=== PATIENT | male | born 1940 | race Caucasian/White ===

== ENCOUNTER 2022-01-15 00:50 | Observation (INO) | payer OTHER, SELFPAY ==
[2022-01-15] VITALS (13 sets, daily range): BP systolic 119–175; BP diastolic 55–82; PULSE 58–73; RESP 12–20; TEMP 36.3–37.7; O2SAT 95–100
--- NOTE | 2022-01-15 | ECHO_ITS ---
Patient Info Name: Dickson Pretty Age: 81 years : 1940 Gender: Male Ht: 73 in Wt: 206 lbs BSA: 2.21 m2 HR: 65 bpm BP: 175 / 82 mmHg Heart Rhythm: Sinus Rhythm Exam Date: 01/15/2022 3:16 PM Exam Location: [facility] Patient Status: Inpatient Admit Date: 01/15/2022 Staff Ordering Physician: Chastity Richard PA-C Crop Research Scientist: Jalen Charles RDCS, RT Attending Provider: Chastity Richard PA-C Referring Physician: Jose Manuel CASH; Exam Type: CA echo doppler color flow Study Info Indications I50.9 - Heart failure, unspecified Complete two-dimensional, color flow and Doppler transthoracic echocardiogram is performed. Strain analysis performed. Summary 1. Complete two-dimensional, color flow and Doppler transthoracic echocardiogram is performed. 2. Normal left venticular systolic function with no regional wall motion abnormalities. 3. No significant valvular disease. Left Ventricle Normal left venticular systolic function with no regional wall motion abnormalities. Left ventricular chamber dimension is normal. Left ventricular systolic function is normal, estimated at 60-65%. There is mildly increased left ventricular wall thickness. The left ventricular diastolic function is normal. Right Ventricle Right ventricular chamber dimension is normal. Right ventricular systolic function is normal. Left Atria Left atrial chamber dimension is mildly enlarged. Right Atria Right atrial chamber dimension is normal. Aortic Valve The aortic valve is not well visualized. There is no aortic valve stenosis. There is trace aortic valve regurgitation. Pulmonic Valve The pulmonic valve is not well visualized. Mitral Valve The mitral valve has normal leaflets. There is no mitral valve stenosis. There is mild mitral valve regurgitation. Tricuspid Valve The tricuspid valve leaflets are not well visualized. There is no significant tricuspid valve stenosis. There is no tricuspid valve regurgitation. Pericardium/Pleural There is no pericardial effusion. Aorta The aortic root size at the sinus of Valsalva is normal. The prox ascending aorta size is normal. Left Ventricular Outflow Tract Name Value Normal LVOT 2D LVOT Diameter 2.0 cm LVOT Doppler LVOT Peak Gradient 4 mmHg LVOT Mean Gradient 2 mmHg LVOT VTI 20 cm LVOT VTI/AV VTI Ratio 0.8 LVOT Stroke Volume 65 ml LVOT CO 4.2 l/min LVOT CI 1.9 l/min/m2 Mitral Valve Name Value Normal MV Doppler MV Decel Sullivan 280 cm/s2 MV PHT 82 ms MV Area (PHT) 2.7 cm2 4.0-5.0
--- NOTE | ~2022-01-15 | XR_ITS ---
EXAMINATION: XR chest 1V portable DATE: 01/15/2022 01:21 INDICATION: Weakness TECHNIQUE: frontal view of the chest was obtained. COMPARISON: None FINDINGS: Pulmonary vascular congestion. Mild opacities at the bilateral lower lung zones. No pleural effusion or pneumothorax. The cardiomediastinal silhouette is normal. Mild thoracic dextrocurvature with mild spondylosis. IMPRESSION: 1. Pulmonary vascular congestion with mild opacities in bilateral lower lung zones most likely atelec tasis with differential including mild pulmonary edema or pneumonia. Reviewed, dictated and finalized at location A. IMPRESSION: 1. Pulmonary vascular congestion with mild opacities in bilateral lower lung zo mirza most likely atelectasis with differential including mild pulmonary edema or pneumonia.
--- NOTE | 2022-01-15 01:12 | ECG_ITS ---
Measurements Intervals [place] Rate: 62 P: 6 MI: 149 QRS: -41 QRSD: 118 T: 8 QT: 415 QTc: 422 Interpretive Statements SINUS RHYTHM LEFT AXIS DEVIATION INCOMPLETE RIGHT BUNDLE BRANCH BLOCK CANNOT RULE OUT SEPTAL INFARCT, AGE INDETERMINATE BASELINE ARTIFACT- II, V1 ABNORMAL ECG NO PREVIOUS ECG AVAILABLE FOR COMPARISON Electronically Signed On 01-15-2022 6:37:49 CDT by Nakul Sanders D.O.
[2022-01-15 01:57] LABS: Basophils Absolute Auto 0.1 K/mm3 (0.0-0.1); Basophils Percent Auto 0.4 % (0.2-1.2); Eosinophils Absolute Auto 0.1 K/mm3 (0-0.3); Eosinophils Percent Auto 0.4 % (0-4.4); Hematocrit 36.4 % (42.0-52.0); Hemoglobin 11.7 g/dL (14.0-18.0); Immature Granulocyte Absolute 0.14 K/mm3 (0.00-0.031); Immature Granulocyte Percent A 0.8 % (0-0.5); Lymphocytes Absolute Auto 0.64 K/mm3 (0.9-3.2); Lymphocytes Percent Auto 3.8 % (18.3-44.2); Mean Corpuscular HGB Conc 32.1 g/dl (32-36); Mean Corpuscular Hemoglobin 31.5 pg (26-34); Mean Corpuscular Volume 98.1 fl (80-100); Mean Platelet Volume 9.3 fl (7.4-10.4); Monocytes Absolute Auto 1.3 K/mm3 (0.1-0.6); Monocytes Percent Auto 7.5 % (2.6-8.5); Neutrophils Absolute Auto 14.5 K/mm3 (1.3-6.7); Neutrophils Percent Auto 87.1 % (45.5-73.1); Platelet Count Result 292 k/mm3 (150-375); Red Blood Count 3.71 M/mm3 (4.6-6.20); Red Cell Distribution Width 13.1 % (11.5-14.5); White Blood Count 16.7 K/mm3 (4.5-10.0)
[2022-01-15 01:59] LABS: Appearance Urine Cloudy (Clear); Bilirubin Urine Negative (Negative); Blood Urine 3+ (Negative); Color Urine Yellow (Yellow); Glucose Urine UA Negative (Negative); Ketones Urine Negative (Negative); Leukocyte Esterase Ur 1+ LEU/UL (Negative); Nitrate Urine Positive (Negative); Protein Urine 2+ mg/dL (Negative); Urobilinogen Urine 0.2 mg/dL (<2.0); pH Urine 7.5 (5.0-9.0)
[2022-01-15 02:07] LABS: Bacteria Urine Trace /hpf; RBC Urine 51-75 /hpf (0-2); WBC Urine >75 /hpf
[2022-01-15 02:09] LABS: Add Urine Microscopic? YES
[2022-01-15 02:12] LABS: Alanine Aminotransferase 8 U/L (6-50); Albumin Level 4.3 g/dL (3.5-5.1); Alkaline Phosphatase 96 U/L (38-126); Anion Gap 11 mmol/L (8-16); Aspartate Amino Transferase 26 U/L (17-59); Bilirubin,Total 1.1 mg/dL (0.2-1.3); Blood Urea Nitrogen 23 mg/dL (9-20); Calcium 9.7 mg/dL (8.4-10.2); Carbon Dioxide 30 mmol/L (22-30); Chloride 98 mmol/L (98-107); Estimated Glomerular Filt Rate > 60; Glucose 110 mg/dL (65-110); Potassium 4.2 mmol/L (3.4-5.0); Sodium 139 mmol/L (137-145)
[2022-01-15 02:13] LABS: Lactic Acid Reflex 1.1 mmol/L (0.7-2.0)
[2022-01-15] MEDS: SODIUM CHLORIDE 0.9% IV 1,000 ML 999 ML IV CONT (02:23)
[2022-01-15 02:48] LABS: Troponin I 0.048 ng/mL (0.000-0.034)
--- NOTE | 2022-01-15 03:01 | ED.GENADULT ---
HPI - General Adult General Chief complaint: Altered Mental Status Stated complaint: AMS Time Seen by Provider: 01/15/22 00:57 History of Present Illness HPI narrative: Patient 81-year-old gentleman who presents the emergency department with chief complaint of altered mental status per the [facility] and the family the patient is normally alert and able to answer questions and they have noticed that he has been progressively weaker today. They also noticed that the patient had a fever today. Patient has history of Parkinson's and is normally ANO x2. Related Data Allergies Allergy/AdvReac Type Severity Reaction Status Date / Time No Known Allergies Allergy Unverified 11/13/18 12:27 Review of Systems Review of Systems: A 10 system review of systems was completed on the patient and is negative except for what is stated in the HPI. Nursing and ancillary documentation was reviewed. Exam Narrative: GENERAL: Well-appearing, well-nourished, and in no acute distress. HEAD: Normocephalic, atraumatic. EYES: PERRLA and EOMI. ENT: Nares clear, no rhinorrhea or epistaxis. Mucous membranes moist. NECK: Supple. CHEST: Clear to auscultation. No respiratory distress. HEART: Regular rate and rhythm. No murmur heard. Normal peripheral pulses. ABDOMEN: Soft, nontender, nondistended, normal active bowel sounds. EXTREMITIES: Normal range of motion. No edema. SKIN: Warm, dry, no rash. NEURO: No focal deficits. Alert and oriented x3. PSYCH: Normal mood and affect. Course Course Emergency Course: Laboratory studies showed an elevated white blood cell count and a urinalysis that was positive for greater than 75 white blood cells. Patient did have a slightly elevated troponin, but has had no chest pain and EKG showed no evidence of acute ST elevation Vital Signs Vital signs: Vital Signs Temperature 36.3 C L 01/15/22 00:50 Pulse Rate 58 L 01/15/22 00:50 Respiratory Rate 20 01/15/22 00:50 Blood Pressure 134/64 01/15/22 00:50 Pulse Oximetry 98 01/15/22 00:50 Oxygen Delivery Room Air 01/15/22 00:50 Temperature 36.3 C L 01/15/22 00:50 Pulse Rate 58 L 01/15/22 00:50 Respiratory Rate 20 01/15/22 00:50 Blood Pressure 134/64 01/15/22 00:50 Pulse Oximetry 98 01/15/22 00:50 Oxygen Delivery Room Air 01/15/22 00:50 Medical Decision Making Vital Signs Vital Signs: Vital Signs Temperature 36.3 C L 01/15/22 00:50 Pulse Rate 58 L 01/15/22 00:50 Respiratory Rate 20 01/15/22 00:50 Blood Pressure 134/64 01/15/22 00:50 Pulse Oximetry 98 01/15/22 00:50 Oxygen Delivery Room Air 01/15/22 00:50 Temperature 36.3 C L 01/15/22 00:50 Pulse Rate 58 L 01/15/22 00:50 Respiratory Rate 20 01/15/22 00:50 Blood Pressure 134/64 01/15/22 00:50 Pulse Oximetry 98 01/15/22 00:50 Oxygen Delivery Room Air 01/15/22 00:50 Lab Data Result diagrams: 01/15/22 01:44 01/15/22 01:44 Labs: Lab Results 01/15/22 01/15/22 01/15/22 Range/Units 01:44 01:44 01:44 WBC 16.7 H (4.5-10.0) K/mm3 RBC 3.71 L (4.6-6.20) M/mm3 Hgb 11.7 L (14.0-18.0) g/dL Hct 36.4 L (42.0-52.0) % MCV 98.1 (80-100) fl MCH 31.5 (26-34) pg MCHC 32.1 (32-36) g/dl RDW 13.1 (11.5-14.5) % Plt Count 292 (150-375) k/mm3 MPV 9.3 (7.4-10.4) fl Immature Gran % (Auto) 0.8 H (0-0.5) % Neut % (Auto) 87.1 H (45.5-73.1) % Lymph % (Auto) 3.8 L (18.3-44.2) % [place] % (Auto) 7.5 (2.6-8.5) % Eos % (Auto) 0.4 (0-4.4) % Baso % (Auto) 0.4 (0.2-1.2) % Lymph # (Auto) 0.64 L (0.9-3.2) K/mm3 [place] # (Auto) 1.3 H (0.1-0.6) K/mm3 Eos # (Auto) 0.1 (0-0.3) K/mm3 Baso # (Auto) 0.1 (0.0-0.1) K/mm3 Abs Immat Gran (auto) 0.14 H (0.00-0.031) K/mm3 Absolute Neuts (auto) 14.5 H (1.3-6.7) K/mm3 Absolute Nucleated RBC 0.0 (0.0-0.012) K/mm3 Nucleated RBC % 0.0 (0.0-0.2) % Sodium 139 (137-145) mmo
--- NOTE | 2022-01-15 03:04 | PC.NURSE ---
report given to Selam.
[2022-01-15 03:14] LABS: Influenza A QL RT-PCR Negative (Negative); Influenza B QL RT-PCR Negative (Negative); SARS-CoV-2 RNA PCR Negative
[2022-01-15 03:27] LABS: Procalcitonin 0.5 ng/mL
--- NOTE | 2022-01-15 03:29 | PM.IMHP ---
H&P: HPI History of Present Illness Date/Time: 01/15/22 03:29 Chief Complaint: 81 years old male with past medical history of Parkinson alert oriented x2 at baseline patient presented from [facility] with progressive weakness and confusion patient had episode of fever at the ER patient was found to leukocytosis elevated troponin and abnormal UA most likely related to UTI patient was started on IV antibiotic blood cultures pending Narrative: 12 system review was negative except above Meds Home Medications and Allergies Home Medications Medication Instructions Recorded Confirmed Type clonazepam 0.5 mg tablet 0.5 mg PO QHS #30 tabs 04/03/21 Rx Allergies Allergy/AdvReac Type Severity Reaction Status Date / Time No Known Allergies Allergy Unverified 11/13/18 12:27 Vital Signs Vital Signs - 24 hr 01/15/22 00:50 Temperature 97.3 F L Pulse Rate 58 L Respiratory Rate 20 Blood Pressure 134/64 Pulse Oximetry 98 Oxygen Delivery Room Air Exam Narrative: GENERAL: Looks dehydrated. HEAD: Normocephalic, atraumatic. NECK: Supple. No adenopathy, no masses. RESPIRATORY: Airway patent, respirations nonlabored. Clear to auscultation bilaterally, no rales, rhonchi, wheezing. CARDIOVASCULAR: Regular rate and rhythm without murmurs, rubs, or gallops. Peripheral pulses 2+ and equal bilaterally. ABDOMINAL: Soft, nontender, nondistended, no hepatosplenomegaly. Normoactive BS. MUSCULOSKELETAL: Moves all extremities. Strength/ROM intact without gross deformities or TTP. No edema. No calf tenderness. No chest wall tenderness palpation. SKIN: Warm, dry, normal color. No rashes. NEURO: A&O X2 moves all extremities PSYCHIATRIC: Appropriate mood and affect. Normal interaction. H&P: Results Labs Labs: Short CBC 01/15/22 Range/Units 01:44 WBC 16.7 H (4.5-10.0) K/mm3 Hgb 11.7 L (14.0-18.0) g/dL Hct 36.4 L (42.0-52.0) % Plt Count 292 (150-375) k/mm3 BMP 01/15/22 01:44 Sodium 139 Potassium 4.2 Chloride 98 Carbon Dioxide 30 BUN 23 H Creatinine 1.10 Glucose 110 Calcium 9.7 Cardiac Enzymes 01/15/22 Range/Units 01:44 Troponin I 0.048 H* (0.000-0.034) ng/mL Liver Function 01/15/22 Range/Units 01:44 Total Bilirubin 1.1 (0.2-1.3) mg/dL AST 26 (17-59) U/L ALT 8 (6-50) U/L Alkaline Phosphatase 96 (38-126) U/L Albumin 4.3 (3.5-5.1) g/dL Urine 01/15/22 Range/Units 01:44 Urine Color Yellow (Yellow) Urine Appearance Cloudy H (Clear) Urine pH 7.5 (5.0-9.0) Ur Specific [place] 1.020 (1.001-1.035) Urine Protein 2+ H (Negative) mg/dL Urine Glucose (UA) Negative (Negative) mg/dL Assessment and Plan Assessment and plan (1) UTI (urinary tract infection): Code(s): N39.0 - Urinary tract infection, site not specified Status: Acute Assessment and Plan: IV Rocephin Follow urine and blood culture Encourage hydration Will get renal ultrasound (2) Acute metabolic encephalopathy: Code(s): G93.41 - Metabolic encephalopathy Status: Acute Assessment and Plan: Check ammonia level Most likely related to UTI and dehydration IV fluid IV antibiotics (3) Elevated troponin: Code(s): R77.8 - Other specified abnormalities of plasma proteins Status: Acute Assessment and Plan: Most likely demand ischemia type 2 check repeat troponin if elevated consider echo (4) Dehydration: Code(s): E86.0 - Dehydration Status: Acute Assessment and Plan: IV fluid (5) History of Parkinson's disease: Code(s): Z86.69 - Personal history of other diseases of the nervous system and sense organs Status: Acute Assessment and Plan: Pending home medication reconciliation
[2022-01-15 05:12] LABS: Alanine Aminotransferase 9 U/L (6-50); Albumin Level 4.1 g/dL (3.5-5.1); Alkaline Phosphatase 92 U/L (38-126); Anion Gap 12 mmol/L (8-16); Aspartate Amino Transferase 23 U/L (17-59); Blood Urea Nitrogen 24 mg/dL (9-20); Calcium 9.6 mg/dL (8.4-10.2); Carbon Dioxide 28 mmol/L (22-30); Chloride 98 mmol/L (98-107); Estimated Glomerular Filt Rate > 60; Glucose 99 mg/dL (65-110); Potassium 4.4 mmol/L (3.4-5.0); Sodium 138 mmol/L (137-145)
[2022-01-15 05:23] LABS: Ammonia < 9 umol/L (9-30)
[2022-01-15 05:29] LABS: Basophils Percent Auto 0.2 % (0.2-1.2); Eosinophils Percent Auto 0.1 % (0-4.4); Hematocrit 34.5 % (42.0-52.0); Immature Granulocyte Absolute 0.09 K/mm3 (0.00-0.031); Immature Granulocyte Percent A 0.6 % (0-0.5); Lymphocytes Percent Auto 3.1 % (18.3-44.2); Mean Corpuscular HGB Conc 31.9 g/dl (32-36); Mean Corpuscular Hemoglobin 30.8 pg (26-34); Mean Corpuscular Volume 96.6 fl (80-100); Mean Platelet Volume 9.4 fl (7.4-10.4); Monocytes Absolute Auto 1.1 K/mm3 (0.1-0.6); Monocytes Percent Auto 6.9 % (2.6-8.5); Neutrophils Absolute Auto 14.3 K/mm3 (1.3-6.7); Neutrophils Percent Auto 89.1 % (45.5-73.1); Platelet Count Result 264 k/mm3 (150-375); Red Blood Count 3.57 M/mm3 (4.6-6.20)
[2022-01-15 05:40] LABS: Troponin I 0.068 ng/mL (0.000-0.034)
[2022-01-15 08:13] LABS: Troponin I 0.077 ng/mL (0.000-0.034)
--- NOTE | 2022-01-15 08:18 | PC.NURSE ---
Troponin level reported to provider.
[2022-01-15] MEDS: SODIUM CHLORIDE 0.9% IV 1,000 ML 100 ML IV CONT ×2 (09:04→20:45)
[2022-01-15] MEDS: ASPIRIN 81 MG CHEWABLE TABLET PO (09:06)
[2022-01-15] MEDS: ENOXAPARIN 40 MG/0.4 ML SYRINGE SUB-Q (09:06)
[2022-01-15] MEDS: FINASTERIDE 5 MG TABLET PO (10:05)
[2022-01-15] MEDS: CARBIDOPA/LEVODOPA 25/100 MG TABLET 2 TABLET PO ×4 (10:05→20:43)
[2022-01-15] MEDS: FUROSEMIDE 20 MG TABLET PO (10:05)
[2022-01-15] MEDS: FERROUS SULFATE 324 MG TABLET PO (10:05)
[2022-01-15] MEDS: CITALOPRAM HYDROBROMIDE 20 MG TABLET PO (10:05)
[2022-01-15] MEDS: GABAPENTIN 300 MG CAPSULE PO (10:06)
[2022-01-15] MEDS: DOCUSATE SODIUM 100 MG CAPSULE PO ×2 (10:06→17:35)
[2022-01-15 11:16] LABS: Troponin I 0.088 ng/mL (0.000-0.034)
--- NOTE | 2022-01-15 11:20 | PC.NURSE ---
Call placed to notify provider of troponin level. awaiting return call.
--- NOTE | 2022-01-15 15:00 | PM.IMPN ---
Progress Note: A&P Assessment and Plan (1) UTI (urinary tract infection): Code(s): N39.0 - Urinary tract infection, site not specified Status: Acute Assessment and Plan: presented for evaluation of fever with complaints of dysuria and incontinence urinalysis grossly abnormal on presentation continue IV Rocephin urine culture pending, await results and tailor antibiotics accordingly continue gentle IV fluids patient with leukocytosis, continue to monitor CBC (2) Acute metabolic encephalopathy: Code(s): G93.41 - Metabolic encephalopathy Status: Acute Assessment and Plan: patient oriented to self only family reports patient is normally able to answer most questions appropriately likely secondary to UTI as described above. treatment plan as above ammonia within normal limits (3) Elevated troponin: Code(s): R77.8 - Other specified abnormalities of plasma proteins Status: Acute Assessment and Plan: troponin elevated on presentation with increased to 0.088 most likely related to demand ischemia EKG reviewed with no evidence of acute ischemic changes patient denies any history of heart disease patient asymptomatic reviewed troponin results with Cardiology, recommended no need for further trending of troponin levels will obtain echocardiogram to evaluate for wall motion abnormalities consider consultation to Cardiology based on results (4) Dehydration: Code(s): E86.0 - Dehydration Status: Acute Assessment and Plan: secondary to acute infection and decreased p.o. intake continue IV fluids encourage adequate p.o. intake (5) History of Parkinson's disease: Code(s): Z86.69 - Personal history of other diseases of the nervous system and sense organs Status: Acute Assessment and Plan: chronic, unchanged continue carbidopa-levodopa Subjective Date/time seen: 01/15/22 15:00 Interval history: date of service: 01/15/2022 Dickson Ellis is a 81-year-old male with a history of Parkinson's disease, anemia, hyperlipidemia who is seen in follow-up for UTI. He states he feels weak today. He denies chest pain. He does endorse dysuria and urinary incontinence. Denies fever, chills, nausea, vomiting, dizziness, lightheadedness. States his appetite is good. Denies abdominal pain. No diarrhea. No additional concerns. Review of Systems Review of Systems: All systems reviewed & are unremarkable except as noted in HPI and below Exam Narrative: General: Well-nourished, chronically ill-appearing 81-year-old male, sitting up in bed, comfortable, NARD Neuro: awake, alert and oriented x to self only, speech clear, no focal neuro deficits noted, resting tremor of right upper extremity HEENMT: normocephalic, atraumatic, EOMI, sclerae anicteric, moist oral mucosa Respiratory: clear to auscultation bilaterally, nonlabored breathing Cardio: regular rate, regular rhythm with S1-S2 Abdomen: nondistended, normoactive bowel sounds, soft, nontender to palpation : no CVA tenderness Extremities: no edema, erythema, or tenderness to palpation, DP pulses 2+ bilaterally Skin: no rashes or lesions, warm and dry Psych: appropriate mood and affect, judgment and insight fair Objective Data Vital Signs Vital Signs: Vital Signs - 24 hr 01/15/22 00:50 01/15/22 03:30 01/15/22 03:50 Temperature 97.3 F L Pulse Rate 58 L Respiratory Rate 20 Blood Pressure 134/64 Pulse Oximetry 98 100 95 Oxygen Delivery Room Air 01/15/22 04:00 01/15/22 04:01 01/15/22 04:35 Temperature 97.8 F Pulse Rate 67 66 68 Respiratory Rate 12 20 16 Blood Pressure 152/72 H 175/82 H Pulse Oximetry 100 99 Oxygen Delivery 01/15/22 04:00 01/15/22 08:00 01/15/22 12:00 Temperature Pulse Rate 66 71 69 Respiratory Rate Blood Pressure Pulse Oximetry Oxygen Delivery
[2022-01-15] MEDS: GABAPENTIN 300 MG CAPSULE 600 MG PO (20:43)
[2022-01-15] MEDS: ATORVASTATIN 20 MG TABLET PO (20:43)
[2022-01-15] MEDS: DONEPEZIL HCL 10 MG TABLET PO (20:43)
[2022-01-16] VITALS (10 sets, daily range): BP systolic 153–160; BP diastolic 72–81; PULSE 53–68; RESP 16–20; TEMP 36.1–37.1; O2SAT 94–98
[2022-01-16] MEDS: SODIUM CHLORIDE 0.9% IV 1,000 ML 100 ML IV CONT (07:39)
[2022-01-16 07:48] LABS: Basophils Percent Auto 0.2 % (0.2-1.2); Eosinophils Percent Auto 0.3 % (0-4.4); Hematocrit 31.1 % (42.0-52.0); Immature Granulocyte Absolute 0.06 K/mm3 (0.00-0.031); Immature Granulocyte Percent A 0.5 % (0-0.5); Lymphocytes Absolute Auto 0.81 K/mm3 (0.9-3.2); Lymphocytes Percent Auto 6.9 % (18.3-44.2); Mean Corpuscular HGB Conc 32.2 g/dl (32-36); Mean Corpuscular Volume 96.3 fl (80-100); Mean Platelet Volume 9.8 fl (7.4-10.4); Monocytes Absolute Auto 1.4 K/mm3 (0.1-0.6); Monocytes Percent Auto 11.9 % (2.6-8.5); Neutrophils Absolute Auto 9.4 K/mm3 (1.3-6.7); Neutrophils Percent Auto 80.2 % (45.5-73.1); Platelet Count Result 275 k/mm3 (150-375); Red Blood Count 3.23 M/mm3 (4.6-6.20); Red Cell Distribution Width 13.1 % (11.5-14.5); White Blood Count 11.7 K/mm3 (4.5-10.0)
[2022-01-16] MEDS: ENOXAPARIN 40 MG/0.4 ML SYRINGE SUB-Q (08:15)
[2022-01-16] MEDS: CITALOPRAM HYDROBROMIDE 20 MG TABLET PO (08:16)
[2022-01-16] MEDS: GABAPENTIN 300 MG CAPSULE PO (08:16)
[2022-01-16] MEDS: FUROSEMIDE 20 MG TABLET PO (08:16)
[2022-01-16] MEDS: DOCUSATE SODIUM 100 MG CAPSULE PO ×2 (08:16→16:32)
[2022-01-16] MEDS: FERROUS SULFATE 324 MG TABLET PO (08:16)
[2022-01-16] MEDS: ASPIRIN 81 MG CHEWABLE TABLET PO (08:16)
[2022-01-16] MEDS: ACETAMINOPHEN 325 MG TABLET 650 MG PO ×4 (08:16→21:01)
[2022-01-16] MEDS: CARBIDOPA/LEVODOPA 25/100 MG TABLET 2 TABLET PO ×4 (08:16→21:02)
[2022-01-16] MEDS: FINASTERIDE 5 MG TABLET PO (08:16)
[2022-01-16 08:18] LABS: Alanine Aminotransferase 9 U/L (6-50); Albumin Level 3.7 g/dL (3.5-5.1); Alkaline Phosphatase 76 U/L (38-126); Anion Gap 11 mmol/L (8-16); Aspartate Amino Transferase 23 U/L (17-59); Bilirubin,Total 0.6 mg/dL (0.2-1.3); Blood Urea Nitrogen 14 mg/dL (9-20); Calcium 8.4 mg/dL (8.4-10.2); Carbon Dioxide 27 mmol/L (22-30); Chloride 97 mmol/L (98-107); Estimated Glomerular Filt Rate > 60; Glucose 101 mg/dL (65-110); Potassium 3.3 mmol/L (3.4-5.0); Sodium 135 mmol/L (137-145)
[2022-01-16] MEDS: POTASSIUM CHLORIDE 20 MEQ TABLET PO (10:38)
--- NOTE | 2022-01-16 13:43 | PM.IMPN ---
Progress Note: A&P Assessment and Plan (1) UTI (urinary tract infection): Code(s): N39.0 - Urinary tract infection, site not specified Status: Acute Assessment and Plan: presented for evaluation of fever with complaints of dysuria and incontinence urinalysis grossly abnormal on presentation continue IV Rocephin urine culture with growth of Proteus mirabilis, sensitivity report pending discontinue IV fluids as patient has been adequately rehydrated and is tolerating p.o. intake leukocytosis improving, remains afebrile (2) Acute metabolic encephalopathy: Code(s): G93.41 - Metabolic encephalopathy Status: Acute Assessment and Plan: patient oriented to self only family reports patient is normally able to answer most questions appropriately likely secondary to UTI as described above. treatment plan as above pt does have underlying dementia ammonia within normal limits (3) Elevated troponin: Code(s): R77.8 - Other specified abnormalities of plasma proteins Status: Acute Assessment and Plan: troponin elevated on presentation with increased to 0.088 most likely related to demand ischemia EKG reviewed with no evidence of acute ischemic changes patient denies any history of heart disease. he is asymptomatic echocardiogram completed with no wall motion abnormalities no need for further monitoring. (4) Dehydration: Code(s): E86.0 - Dehydration Status: Acute Assessment and Plan: Resolved. secondary to acute infection and decreased p.o. intake IV fluids discontinued today encourage adequate p.o. intake (5) History of Parkinson's disease: Code(s): Z86.69 - Personal history of other diseases of the nervous system and sense organs Status: Acute Assessment and Plan: chronic, unchanged continue carbidopa-levodopa Subjective Date/time seen: 01/16/22 13:43 Interval history: date of service: 01/15/2022 Dickson Ellis is a 81-year-old male with a history of Parkinson's disease, anemia, hyperlipidemia who is seen in follow-up for UTI. he is a fair historian. He complains of back pain today. Denies abdominal pain. Denies dysuria. No chest pain. No shortness of breath. No fevers or chills. Not able to obtain any additional history. Review of Systems Review of Systems: All systems reviewed & are unremarkable except as noted in HPI and below Exam Narrative: General: Well-nourished, chronically ill-appearing 81-year-old male, sitting up in bed, comfortable, NARD Neuro: awake, alert and oriented x to self only, speech clear, no focal neuro deficits noted, resting tremor of right upper extremity HEENMT: normocephalic, atraumatic, EOMI, sclerae anicteric, moist oral mucosa Respiratory: clear to auscultation bilaterally, nonlabored breathing Cardio: regular rate, regular rhythm with S1-S2 Abdomen: nondistended, normoactive bowel sounds, soft, nontender to palpation Extremities: no edema, erythema, or tenderness to palpation, DP pulses 2+ bilaterally Skin: no rashes or lesions, warm and dry Psych: appropriate mood and affect, judgment and insight fair Objective Data Vital Signs Vital Signs: Vital Signs - 24 hr 01/15/22 14:00 01/15/22 16:00 01/15/22 16:02 Temperature 99.9 F H Pulse Rate 65 65 72 Respiratory Rate 18 Blood Pressure 119/55 L Pulse Oximetry 100 Oxygen Delivery 01/15/22 20:00 01/15/22 22:00 01/16/22 04:00 Temperature 98.6 F Pulse Rate 59 L 73 64 Respiratory Rate 16 Blood Pressure 130/73 Pulse Oximetry 97 Oxygen Delivery 01/16/22 00:00 01/16/22 06:00 01/16/22 08:44 Temperature 98.8 F Pulse Rate 57 L 63 67 Respiratory Rate 20 Blood Pressure 160/81 H Pulse Oximetry 97 Oxygen Delivery 01/16/22 09:32 01/16/22 08:00 Temperature Pulse Rate Respiratory Rate Blood Pressure Pulse Oximetry 94
[2022-01-16] MEDS: ATORVASTATIN 20 MG TABLET PO (21:02)
[2022-01-16] MEDS: GABAPENTIN 300 MG CAPSULE 600 MG PO (21:02)
[2022-01-16] MEDS: DONEPEZIL HCL 10 MG TABLET PO (21:02)
[2022-01-17] VITALS: PULSE 59
[2022-01-17 04:00] VITALS: PULSE 67
[2022-01-17 06:00] VITALS: BP 159/83; PULSE 58; RESP 17; TEMP 36.7; O2SAT 100
[2022-01-17 06:10] LABS: Basophils Percent Auto 0.2 % (0.2-1.2); Eosinophils Absolute Auto 0.1 K/mm3 (0-0.3); Eosinophils Percent Auto 0.9 % (0-4.4); Hematocrit 31.2 % (42.0-52.0); Hemoglobin 10.2 g/dL (14.0-18.0); Immature Granulocyte Absolute 0.04 K/mm3 (0.00-0.031); Immature Granulocyte Percent A 0.5 % (0-0.5); Lymphocytes Absolute Auto 0.55 K/mm3 (0.9-3.2); Lymphocytes Percent Auto 6.4 % (18.3-44.2); Mean Corpuscular HGB Conc 32.7 g/dl (32-36); Mean Corpuscular Hemoglobin 31.1 pg (26-34); Mean Corpuscular Volume 95.1 fl (80-100); Monocytes Absolute Auto 0.9 K/mm3 (0.1-0.6); Monocytes Percent Auto 10.6 % (2.6-8.5); Neutrophils Percent Auto 81.4 % (45.5-73.1); Platelet Count Result 265 k/mm3 (150-375); Red Blood Count 3.28 M/mm3 (4.6-6.20); Red Cell Distribution Width 12.8 % (11.5-14.5); White Blood Count 8.6 K/mm3 (4.5-10.0)
[2022-01-17 06:22] LABS: Alanine Aminotransferase 8 U/L (6-50); Albumin Level 3.6 g/dL (3.5-5.1); Alkaline Phosphatase 82 U/L (38-126); Anion Gap 9 mmol/L (8-16); Aspartate Amino Transferase 29 U/L (17-59); Bilirubin,Total 0.5 mg/dL (0.2-1.3); Blood Urea Nitrogen 14 mg/dL (9-20); Calcium 8.9 mg/dL (8.4-10.2); Carbon Dioxide 30 mmol/L (22-30); Chloride 98 mmol/L (98-107); Estimated Glomerular Filt Rate > 60; Glucose 97 mg/dL (65-110); Potassium 3.3 mmol/L (3.4-5.0); Sodium 137 mmol/L (137-145)
[2022-01-17 08:00] VITALS: PULSE 57
[2022-01-17] MEDS: FINASTERIDE 5 MG TABLET PO (08:48)
[2022-01-17] MEDS: ASPIRIN 81 MG CHEWABLE TABLET PO (08:48)
[2022-01-17] MEDS: DOCUSATE SODIUM 100 MG CAPSULE PO ×2 (08:48→16:55)
[2022-01-17] MEDS: ENOXAPARIN 40 MG/0.4 ML SYRINGE SUB-Q (08:48)
[2022-01-17] MEDS: CITALOPRAM HYDROBROMIDE 20 MG TABLET PO (08:48)
[2022-01-17] MEDS: CARBIDOPA/LEVODOPA 25/100 MG TABLET 2 TABLET PO ×3 (08:48→16:54)
[2022-01-17] MEDS: FUROSEMIDE 20 MG TABLET PO (08:48)
[2022-01-17] MEDS: FERROUS SULFATE 324 MG TABLET PO (08:49)
[2022-01-17] MEDS: ACETAMINOPHEN 325 MG TABLET 650 MG PO ×3 (08:49→16:55)
[2022-01-17] MEDS: GABAPENTIN 300 MG CAPSULE PO (08:49)
[2022-01-17 12:00] VITALS: PULSE 62
[2022-01-17 14:00] VITALS: BP 133/64; PULSE 55; RESP 17; TEMP 36.1; O2SAT 100
--- NOTE | 2022-01-17 14:52 | PM.DS ---
DS: Admitting Diagnosis Discharge Date 01/17/2022 Admitting Diagnosis UTI, encephalopathy DS: Discharge Diagnosis Discharge Diagnosis (1) UTI (urinary tract infection): Code(s): N39.0 - Urinary tract infection, site not specified Status: Acute Assessment and Plan: presented for evaluation of fever with complaints of dysuria and incontinence Urinalysis grossly abnormal on presentation Urine culture with growth of Proteus mirabilis Treated with IV Rocephin during admission. Will continue p.o. cefdinir on discharge to complete 7 days of antibiotic therapy (2) Acute metabolic encephalopathy: Code(s): G93.41 - Metabolic encephalopathy Status: Acute Assessment and Plan: [place] to be secondary to UTI Patient has underlying dementia and is typically A&O times 1-2, however reported decreased mentation prior to presentation Mental status improved following treatment with IV antibiotics and per family, patient's mental status returned to his baseline. Patient was A&O x2 and able answer most questions appropriately at time of dischargea Ammonia within normal limits (3) Elevated troponin: Code(s): R77.8 - Other specified abnormalities of plasma proteins Status: Acute Assessment and Plan: troponin elevated on presentation with increase to 0.088 most likely related to demand ischemia EKG reviewed with no evidence of acute ischemic changes patient denies any history of heart disease. he remains asymptomatic echocardiogram completed with no wall motion abnormalities discussed with Cardiology. No need for further monitoring. (4) Dehydration: Code(s): E86.0 - Dehydration Status: Acute Assessment and Plan: Resolved. secondary to acute infection and decreased p.o. intake Rehydrated with IV fluids Patient was able to tolerate adequate p.o. intake (5) History of Parkinson's disease: Code(s): Z86.69 - Personal history of other diseases of the nervous system and sense organs Status: Acute Assessment and Plan: Chronic, unchanged continue carbidopa-levodopa DS: Summary Hospital Course Hospital Course: Date of admission: 01/15/2022 Date of discharge: 01/17/2022 Dickson Ellis is a 81-year-old male with a history of Parkinson's disease, anemia, hyperlipidemia presented to the emergency department on 01/15/2022 from his nursing facility for evaluation of decreased mental status and fever. On presentation to the ED, patient's vital signs were stable, he was afebrile, white blood cell count 16.7, troponin 0.048, additional laboratory workup unremarkable, urinalysis grossly abnormal. He was admitted to the hospitalist service for further evaluation and management. Please see above for further details. He was treated with IV antibiotics for UTI and was eventually transition to oral antibiotics which she will continue to complete 7 days of therapy. His mental status improved. Given his overall improvement, he was determined to no longer require inpatient care and was discharged in hemodynamically stable condition on 01/17/2022. Discussed with patient and his worrisome signs and symptoms for which to return. He will follow-up with his primary care provider as an outpatient for further monitoring Status at Discharge Overall status at discharge: patient is progressing back to baseline Time Spent with Patient Time attestation: Total time spent providing and/or coordinating discharge services: 44 minutes Time spent: Greater than 30 minutes Exam Narrative: General: Well-nourished, chronically ill-appearing 81-year-old male, sitting up in bed, comfortable, NARD Neuro: awake, alert, answering all questions appropriately, speech clear, no focal neuro deficits noted, resting tremor of right upper extremity HEENMT: normocephalic, atraumatic, EOMI, sclerae anicteric, moist oral mucosa Respiratory: clear to a
[2022-01-17 15:26] LABS: EDCOVIDSCREEN Negative (Negative)
== END 2022-01-17 19:20 ==
LOC: ANHED 03:19 → ANH3MEDSUR 04:08
PROVIDERS: Physician Assistant; Admitting Provider Internal Medicine; Emergency Provider Emergency Medicine; PCP Internal Medicine; Visit Provider Family Medicine
DX: N39.0 Urinary tract infection, site not specified (principal); B96.4 Proteus (mirabilis) (morganii) as the cause of diseases classified elsewhere; G93.41 Metabolic encephalopathy; R77.8 Other specified abnormalities of plasma proteins; E86.0 Dehydration; G20 Parkinson's disease; R53.1 Weakness; D64.9 Anemia, unspecified; E78.5 Hyperlipidemia, unspecified; R32 Unspecified urinary incontinence; R09.89 Other specified symptoms and signs involving the circulatory and respiratory systems; R91.8 Other nonspecific abnormal finding of lung field; D72.829 Elevated white blood cell count, unspecified; R94.31 Abnormal electrocardiogram [ECG] [EKG]; Z20.822 Contact with and (suspected) exposure to COVID-19; Z79.1 Long term (current) use of non-steroidal anti-inflammatories (NSAID); Z79.891 Long term (current) use of opiate analgesic; Z79.899 Other long term (current) drug therapy
CPT/HCPCS: 36415; 71045; 80053; 81001; 82140; 83605; 84145; 84484; 85025; 87040; 87077; 87086; 87186; 87426; 87502; 93005; 93306; 96361; 96365; 96366; 96372; 97161; 97165; 99285; A9270; C9803; G0378; J0696; J1650; J7030; U0003; U0005

== ENCOUNTER 2022-03-30 14:08 | Inpatient (IN) | payer OTHER, SELFPAY ==
--- NOTE | ~2022-03-30 | XR_ITS ---
XR chest 2V 03/30/2022 15:43 Indication: Weakness. Procedure: AP and lateral views of the chest Comparison: 01/15/2022 Findings: Heart size normal. There are bilateral peripheral interstitial infiltrates. No pleural effu newton or pneumothorax. No acute osseous abnormality. No acute osseous abnormality. Impression: 1: Improved bilateral peripheral interstitial infiltrates of the mid and lower lungs. Differential di agnosis includes chronic interstitial fibrosis, mild edema and less likely atypical pneumonia Reviewed, dictated and finalized at location A. RINARY EPIDEMIOLOGIST Impression: 1: Improved bilateral peripheral interstitial infiltrates of the mid and lower lungs. Differential diagnosis includes chronic interstitial fibrosis, mild shaista a and less likely atypical pneumonia
--- NOTE | ~2022-03-30 | US_ITS ---
US renal BI 03/31/2022 09:28 Procedure: Realtime transabdominal ultrasound of the kidneys and bladder. Indication: Acute renal failure Comparison: No prior studies for comparison. Findings: Renal echotexture is normal bilaterally without hydronephrosis, contour deforming mass. The re is a echogenic focus in the upper pole of the right kidney measuring 1.3 cm maximum dimension. No significant posterior shadowing. There is no left renal stone is identified. The right kidney measure s 13.1 cm and left kidney measures 13.2 cm. Bladder within normal limits. Impression: 1: Echogenic focus upper pole of the right kidney measuring 1.3 cm maximum dimension, suspicious for nonobstructing renal stone. Reviewed, dictated and finalized at location A. ENTIALER Impression: 1: Echogenic focus upper pole of the right kidney measuring 1.3 cm maximum dime nsion, suspicious for nonobstructing renal stone.
[2022-03-30 14:33] VITALS: BP 122/68; PULSE 119; RESP 18; TEMP 36.8; O2SAT 100
--- NOTE | 2022-03-30 14:52 | ECG_ITS ---
Measurements Intervals [place] Rate: 59 P: 0 AL: 111 QRS: -31 QRSD: 119 T: 13 QT: 448 QTc: 445 Interpretive Statements SINUS BRADYCARDIA WITH SHORT AL INTERVAL LEFT AXIS DEVIATION INTRAVENTRICULAR CONDUCTION DELAY POOR R WAVE PROGRESSION, ANTERIOR LEADS BORDERLINE ECG COMPARED TO ECG 01/15/2022 01:51:36 SINUS BRADYCARDIA NOW PRESENT Electronically Signed On 03-30-2022 17:44:14 TURNER MACHINE by Nakul Sanders D.O.
[2022-03-30 15:26] LABS: Hematocrit 33.1 % (42.0-52.0); Hemoglobin 10.5 g/dL (14.0-18.0); Mean Corpuscular HGB Conc 31.7 g/dl (32-36); Mean Corpuscular Hemoglobin 31.7 pg (26-34); Mean Platelet Volume 10.2 fl (7.4-10.4); Platelet Count Result 260 k/mm3 (150-375); Red Blood Count 3.31 M/mm3 (4.6-6.20); Red Cell Distribution Width 14.6 % (11.5-14.5); White Blood Count 20.4 K/mm3 (4.5-10.0)
[2022-03-30 15:35] LABS: Alanine Aminotransferase 15 U/L (6-50); Albumin Level 4.1 g/dL (3.5-5.1); Alkaline Phosphatase 97 U/L (38-126); Anion Gap 12 mmol/L (8-16); Aspartate Amino Transferase 54 U/L (17-59); Bilirubin,Total 0.6 mg/dL (0.2-1.3); Blood Urea Nitrogen 57 mg/dL (9-20); Calcium 8.8 mg/dL (8.4-10.2); Carbon Dioxide 25 mmol/L (22-30); Chloride 101 mmol/L (98-107); Estimated Glomerular Filt Rate 34; Glucose 85 mg/dL (65-110); Potassium 4.4 mmol/L (3.4-5.0); Sodium 138 mmol/L (137-145)
[2022-03-30 15:45] LABS: Band Neutrophils Percent 10 % (0-6); Eosinophils Percent Manual 1 % (0-4); Lymphocytes Absolute Manual 0.61 K/mm3 (1.1-4.5); Monocytes Percent Manual 1 % (3-9); Neutrophils Absolute Manual 19.38 K/mm3 (1.3-6.7); Neutrophils Percent Manual 85 % (46-73); Platelet Estimate Adequate (Adequate); Total Cells Counted 100
[2022-03-30 15:46] LABS: Ovalocytes 1+ (NORMAL); Schistocytes None Seen (NORMAL)
[2022-03-30 16:01] LABS: Influenza A QL RT-PCR Negative (Negative); Influenza B QL RT-PCR Negative (Negative); RSV RNA, RT-PCR Negative (Negative); SARS-CoV-2 RNA PCR Negative
--- NOTE | 2022-03-30 18:21 | ED.GENADULT ---
HPI - General Adult General Chief complaint: Recheck/Abnormal Lab/Rx Stated complaint: increased wbc Time Seen by Provider: 03/30/22 17:38 Source: family Mode of arrival: EMS Limitations: no limitations History of Present Illness HPI narrative: 82-year-old with a history of CAD, hypertension DVT, BPH, GERD was sent from [facility] with complaints of elevated white blood cell count. As per the family patient has not been eating well or drinking for past few days he was admitted to the hospital in the month of January for the same. Patient denies any fever or chills, felt nauseous yesterday Related Data Home Medications Medication Instructions Recorded Confirmed Vitamin D3 50,000 unit PO WEEKLY 01/15/22 01/15/22 acetaminophen 650 mg tablet 650 mg PO QID 01/15/22 01/15/22 atorvastatin 20 mg tablet 20 mg PO HS 01/15/22 01/15/22 carbidopa 25 mg-levodopa 100 mg 2 tablet PO QID 01/15/22 01/15/22 tablet celecoxib 200 mg capsule 200 mg PO BID 01/15/22 01/15/22 citalopram 20 mg tablet 20 mg PO DAILY 01/15/22 01/15/22 docusate sodium 100 mg capsule 100 mg PO BID 01/15/22 01/15/22 donepezil 5 mg tablet 10 mg PO HS 01/15/22 01/15/22 ferrous sulfate 325 mg (65 mg 325 mg PO DAILY 01/15/22 01/15/22 iron) tablet finasteride 5 mg tablet 5 mg PO DAILY 01/15/22 01/15/22 furosemide 20 mg tablet 20 mg PO DAILY 01/15/22 01/15/22 gabapentin 300 mg capsule See Rx Instructions .Route .COMPLEX 01/15/22 01/15/22 ibuprofen 800 mg tablet 800 mg PO QID PRN Pain 01/15/22 01/15/22 midodrine 5 mg tablet 5 mg PO TID 01/15/22 01/15/22 tramadol 50 mg tablet 100 mg PO QID PRN Pain 01/15/22 01/15/22 Allergies Allergy/AdvReac Type Severity Reaction Status Date / Time No Known Allergies Allergy Unverified 11/13/18 12:27 Review of Systems Review of Systems: All systems reviewed & are unremarkable except as noted in HPI and below Constitutional: Constitutional: Reports no additional constitutional complaints ENT: Reports system reviewed and no additional complaints, except as documented Gastrointestinal: Gastrointestinal: Reports no additional gastrointestinal complaints Genitourinary: Genitourinary: Reports no additional male genitourinary complaints Musculoskeletal: Musculoskeletal: Reports no additional musculoskeletal complaints Integumentary/Breasts: Skin/Breast: Reports system reviewed and no additional complaints, except as docu Neurologic: Reports system reviewed and no additional complaints, except as documented PMFSH Past Medical History Medical History History of Parkinson's disease Social History Social History Smoking status: Never smoker Alcohol intake: never Substance use: never Spiritual care concerns: No Exam Narrative: GENERAL: Well-appearing, well-nourished, and in no acute distress. HEAD: Normocephalic, atraumatic. EYES: PERRLA and EOMI. NECK: Supple. CHEST: Clear to auscultation. No respiratory distress. HEART: Regular rate and rhythm. No murmur heard. Normal peripheral pulses. ABDOMEN: Soft, nontender, nondistended, normal active bowel sounds. EXTREMITIES: Normal range of motion. No edema. SKIN: Warm, dry, no rash. NEURO: No focal deficits. Alert and oriented x3. PSYCH: Normal mood and affect. Course Course Emergency Course: 82-year-old presents he has no complaints however his lab work done today showed a white count of 20,000 his BUN and creatinine is elevated, will start IV fluids obtain blood cultures and start IV Rocephin I reviewed his urine cultures from January which grew Proteus mirabilis sensitive to ceftriaxone. Vital Signs Vital signs: Vital Signs Temperature 36.8 C 03/30/22 14:33 Pulse Rate 119 H 03/30/22 14:33 Respiratory Rate 18 03/30/22 14:33 Blood Pressure 122/68 03/30/22 14:33 Pulse Oximetry 100 03/30/22 14:33 Oxygen Delivery Room Air 1
--- NOTE | 2022-03-30 18:26 | PM.IMHP ---
H&P: HPI History of Present Illness Date/Time: 03/30/22 18:26 Chief Complaint: Elevated white blood count Narrative: This is a 82-year-old male patient who has a history of hypertension, DVT BPH and coronary artery disease. The patient came from [facility] with complaints of an elevated white count. The family also stated that he has not been eating or drinking very well patient had been admitted in January for the same symptoms. Patient denies any fever chills. His white count is 20.5. H&H is 10.5 and 33.1 which is at his baseline. His creatinine is 1.9 with a normal baseline. The patient was found to be positive for UTI. He is negative for influenza A/B RSV and COVID. The patient was started on ceftriaxone and given 2 L of IV fluids. Chest x-ray was read as improved bibasilar peripheral interstitial infiltrates in the mid and lower lungs. Differential diagnosis includes chronic interstitial fibrosis mild edema and less likely atypical pneumonia. Initially the patient was admitted to inpatient status and then was changed to observation status on the date of service of 03/30/2022. Review of Systems Review of Systems: See HPI All systems reviewed & are unremarkable except as noted in HPI and below Constitutional: Constitutional: Reports as per HPI and Reports no additional constitutional complaints Eyes: Eyes: Reports as per HPI and Reports no additional eye complaints ENT: Reports system reviewed and no additional complaints, except as documented and Reports Normal hearing present Cardiovascular: Cardiovascular: Reports no additional cardiovascular complaints Respiratory: Respiratory: Reports no additional respiratory complaints and Reports no additional respiratory complaints Gastrointestinal: Gastrointestinal: Reports as per HPI and Reports no additional gastrointestinal complaints Musculoskeletal: Musculoskeletal: Reports no additional musculoskeletal complaints Integumentary/Breasts: Skin/Breast: Reports system reviewed and no additional complaints, except as docu and Reports as per HPI Neurologic: Reports system reviewed and no additional complaints, except as documented, Reports as per HPI and Reports Normal hearing present Psychiatric: Psychiatric: Reports no additional psychiatric complaints and Reports as per HPI Endocrine: Endocrine: Reports no additional endocrine complaints Hematologic/Lymphatic: Hematologic/Lymphatic: Reports no additional hematologic/lymphatic complaints Allergic/Immunologic: Allergic/Immunologic: Reports no additional allergic/immunologic complaints PMFSH Past Medical History Medical History Arthritis BPH (benign prostatic hyperplasia) Dementia Depression with anxiety History of Parkinson's disease HTN (hypertension), benign Hyperlipidemia Neuropathy Surgical History Surgical History H/O arthroscopic knee surgery Family History Family History Sibling Acute myocardial infarction Prostate carcinoma Father Colon cancer Mother Congestive heart failure Social History Social History (Updated 03/31/22 @ 01:00 by Odalys Servin NP) Social History: The patient is and has 2 adopted children. 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 The patient resides at [facility]. He is a former smoker. He does occasionally have an alcoholic drink. 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 Code status DNR Smoking status: Former smoker Alcohol intake: never Substance use: never Lack of Transportation: No Lack of Food: Never True Current Housing: I Have Housing Concerned About Future Housing: No Difficulty Paying Gas/Electric Bills: No Difficulty Paying for Meds: No Currently Unemployed: No Education: Trade/Vocational Certificate D
[2022-03-30 18:27] LABS: Bacteria Urine Trace /hpf; Mucus Urine Rare /lpf; RBC Urine >75 /hpf (0-2); Squamous Epithelial Cell Urine Rare /hpf (Few); WBC Clumps Urine Present /HPF; WBC Urine >75 /hpf
[2022-03-30 18:33] LABS: Appearance Urine Slightly Cloudy (Clear); Bilirubin Urine 1+ (Negative); Blood Urine 3+ (Negative); Color Urine Yellow (Yellow); Glucose Urine UA Negative (Negative); Ketones Urine Trace mg/dL (Negative); Leukocyte Esterase Ur 3+ LEU/UL (Negative); Nitrate Urine Positive (Negative); Protein Urine 3+ mg/dL (Negative); Urobilinogen Urine 0.2 mg/dL (<2.0); pH Urine 8.5 (5.0-9.0)
[2022-03-30] MEDS: SODIUM CHLORIDE 0.9% IV 1,000 ML 125 ML IV CONT ×2 (18:41→22:14)
[2022-03-30 18:49] LABS: Add Urine Microscopic? YES
[2022-03-30 20:05] VITALS: BP 126/62; PULSE 63; RESP 14; O2SAT 100
--- NOTE | 2022-03-30 20:36 | ADMGEN ---
This patient, Dickson Pretty, was admitted to Medical Room 344-01. Patient/family oriented to hospital policies and general routines including ID bracelet, bed and alarms, visiting hours, pain management, procedures, bathroom and other care routines, personal items, smoking policy, room service/diet, and visiting hours. Information on how to activate the Rapid Response Team has been discussed. Patient/Family are encouraged to report perceived risks to care and to ask questions if they do not understand what they are told or what they should do.
[2022-03-30 21:13] VITALS: BP 141/79; PULSE 62; RESP 16; TEMP 36.6; O2SAT 100
[2022-03-30 21:19] VITALS: BMI 26.8
[2022-03-31] VITALS: BP 136/74; PULSE 60; RESP 16; TEMP 36.8; O2SAT 100
[2022-03-31] MEDS: DONEPEZIL HCL 10 MG TABLET PO ×2 (01:33→21:19)
[2022-03-31] MEDS: ATORVASTATIN 20 MG TABLET PO ×2 (01:33→21:19)
[2022-03-31] MEDS: GABAPENTIN 300 MG CAPSULE 600 MG PO ×2 (01:33→21:19)
[2022-03-31] MEDS: CARBIDOPA/LEVODOPA 25/100 MG TABLET 2 TABLET PO ×3 (01:33→17:25)
[2022-03-31 04:00] VITALS: BP 146/65; PULSE 58; RESP 16; TEMP 36.8; O2SAT 100
[2022-03-31 06:53] LABS: Basophils Percent Auto 0.3 % (0.2-1.2); Eosinophils Absolute Auto 0.1 K/mm3 (0-0.3); Eosinophils Percent Auto 1.1 % (0-4.4); Hematocrit 30.1 % (42.0-52.0); Hemoglobin 9.6 g/dL (14.0-18.0); Immature Granulocyte Absolute 0.15 K/mm3 (0.00-0.031); Immature Granulocyte Percent A 1.2 % (0-0.5); Lymphocytes Absolute Auto 0.58 K/mm3 (0.9-3.2); Lymphocytes Percent Auto 4.7 % (18.3-44.2); Mean Corpuscular HGB Conc 31.9 g/dl (32-36); Mean Corpuscular Hemoglobin 31.5 pg (26-34); Mean Corpuscular Volume 98.7 fl (80-100); Mean Platelet Volume 10.8 fl (7.4-10.4); Monocytes Absolute Auto 0.6 K/mm3 (0.1-0.6); Monocytes Percent Auto 4.6 % (2.6-8.5); Neutrophils Absolute Auto 10.9 K/mm3 (1.3-6.7); Neutrophils Percent Auto 88.1 % (45.5-73.1); Platelet Count Result 193 k/mm3 (150-375); Red Blood Count 3.05 M/mm3 (4.6-6.20); Red Cell Distribution Width 14.4 % (11.5-14.5); White Blood Count 12.4 K/mm3 (4.5-10.0)
[2022-03-31 07:20] LABS: Anion Gap 9 mmol/L (8-16); Blood Urea Nitrogen 44 mg/dL (9-20); Calcium 8.2 mg/dL (8.4-10.2); Carbon Dioxide 26 mmol/L (22-30); Chloride 105 mmol/L (98-107); Estimated CRCL calculation 50 ml/min; Estimated Glomerular Filt Rate 58; Glucose 79 mg/dL (65-110); Sodium 140 mmol/L (137-145)
[2022-03-31] MEDS: CITALOPRAM HYDROBROMIDE 10 MG TABLET PO (09:57)
[2022-03-31] MEDS: FERROUS SULFATE 324 MG TABLET PO (09:57)
[2022-03-31] MEDS: FINASTERIDE 5 MG TABLET PO (09:58)
[2022-03-31] MEDS: ERGOCALCIFEROL 50,000 UNITS CAPSULE 50000 UNITS PO (09:58)
[2022-03-31] MEDS: DOCUSATE SODIUM 100 MG CAPSULE PO ×2 (09:58→17:25)
[2022-03-31] MEDS: GABAPENTIN 300 MG CAPSULE PO ×2 (09:59→17:25)
[2022-03-31] MEDS: MIDODRINE HCL 2.5 MG TABLET 5 MG PO ×2 (09:59→17:25)
[2022-03-31 14:00] VITALS: BP 114/53; PULSE 56; RESP 16; TEMP 36.7; O2SAT 100
--- NOTE | 2022-03-31 14:26 | PM.IMPN ---
Progress Note: A&P Assessment and Plan (1) UTI (urinary tract infection): Code(s): N39.0 - Urinary tract infection, site not specified Status: Acute Assessment and Plan: -tailor antibiotics according to cultures. -continue Rocephin -Advised staying hydrated -Recommended Pedialyte due to patient not liking water. states that patient drinks juice and soda. -trend hemoglobin and white blood cell count -Blood and urine culture pending -patient education on UTIs and hydration. would like to be contacted when patient is being discharge. Last time patient was here she nor the intermediate was contacted. (2) Acute renal failure: Code(s): N17.9 - Acute kidney failure, unspecified Status: Acute Assessment and Plan: -IV fluids scheduled -repeat labs in the a.m.. -hold any nephrotoxic medication. -most likely pre renal azotemia as he has had a poor oral intake. (3) History of Parkinson's disease: Code(s): Z86.69 - Personal history of other diseases of the nervous system and sense organs Status: Acute Assessment and Plan: -continue carbidopa levodopa (4) Hyperlipidemia: Code(s): E78.5 - Hyperlipidemia, unspecified Status: Acute Assessment and Plan: -continue with heart healthy diet -continue with Lipitor (5) Depression with anxiety: Code(s): F41.8 - Other specified anxiety disorders Status: Acute Assessment and Plan: -continue with Celexa (6) BPH (benign prostatic hyperplasia): Code(s): N40.0 - Benign prostatic hyperplasia without lower urinary tract symptoms Status: Acute Assessment and Plan: -continue with Proscar (7) Neuropathy: Code(s): G62.9 - Polyneuropathy, unspecified Status: Acute Assessment and Plan: -continue with gabapentin (8) Dementia: Code(s): F03.90 - Unspecified dementia, unspecified severity, without behavioral disturbance, psychotic disturbance, mood disturbance, and anxiety Status: Acute Assessment and Plan: -continue with Aricept Subjective Date/time seen: 03/31/22 14:26 Interval history: 82-year-old male with history of Parkinson's disease, dementia, hypertension, and BPH presented to the ER due to lack of eating and drinking as well as elevated white blood cell. Patient's UA revealed 3+ blood, nitrate positive, leukocyte esterase 3+, rbc's greater than 75, WBC greater than 75. Patient started on ceftriaxone. Patient denied fever, shortness of breath, chest pain, nausea, vomiting, diarrhea, and dysuria. Patient states that he is urinary frequency although he does have a history of BPH. Differential BPH versus UTI. Review of Systems Review of Systems: All systems reviewed & are unremarkable except as noted in HPI and below Exam Narrative: GENERAL: Comfortable, no acute distress HENMT: moist mucous membranes EYES: EOM intact b/l NECK: no lymphadenopathy RESPIRATORY: clear to auscultation CARDIO: RRR GI: soft, nontender, bowel sounds present SKIN: no rashes, cap refill less than 2 seconds, no skin tenting EXTREMITIES: no edema, redness or tenderness Objective Data Vital Signs Vital Signs: Vital Signs - 24 hr 03/30/22 14:33 03/30/22 20:05 03/30/22 20:55 Temperature 98.3 F Pulse Rate 119 H 63 Respiratory Rate 18 14 Blood Pressure 122/68 126/62 Pulse Oximetry 100 100 Oxygen Delivery Room Air Room Air 03/30/22 21:13 03/31/22 00:00 03/31/22 04:00 Temperature 97.8 F 98.2 F 98.2 F Pulse Rate 62 60 58 L Respiratory Rate 16 16 16 Blood Pressure 141/79 H 136/74 146/65 H Pulse Oximetry 100 100 100 Oxygen Delivery 03/31/22 08:00 03/31/22 14:00 Temperature 98.1 F Pulse Rate 56 L Respiratory Rate 16 Blood Pressure 114/53 L Pulse Oximetry 100 Oxygen Delivery Room Air Intake/Output Intake/Output: Intake & Output 03/28/22 03/29/22 03/30/22 03/31/22 23:59 23:59 23:59 23:59 Intake
[2022-03-31 20:00] VITALS: BP 110/52; PULSE 56; RESP 16; TEMP 36.7; O2SAT 100
[2022-04-01] VITALS: BP 148/80; PULSE 58; RESP 16; TEMP 36.7; O2SAT 97
[2022-04-01 04:00] VITALS: BP 148/52; PULSE 55; RESP 16; TEMP 36.7; O2SAT 100
[2022-04-01 06:07] LABS: Basophils Percent Auto 0.3 % (0.2-1.2); Eosinophils Absolute Auto 0.1 K/mm3 (0-0.3); Eosinophils Percent Auto 1.6 % (0-4.4); Hematocrit 30.3 % (42.0-52.0); Hemoglobin 9.7 g/dL (14.0-18.0); Immature Granulocyte Percent A 1.1 % (0-0.5); Lymphocytes Absolute Auto 0.71 K/mm3 (0.9-3.2); Lymphocytes Percent Auto 7.9 % (18.3-44.2); Mean Corpuscular Hemoglobin 31.3 pg (26-34); Mean Corpuscular Volume 97.7 fl (80-100); Mean Platelet Volume 10.4 fl (7.4-10.4); Monocytes Absolute Auto 0.7 K/mm3 (0.1-0.6); Monocytes Percent Auto 7.3 % (2.6-8.5); Neutrophils Absolute Auto 7.3 K/mm3 (1.3-6.7); Neutrophils Percent Auto 81.8 % (45.5-73.1); Platelet Count Result 208 k/mm3 (150-375); Red Cell Distribution Width 14.3 % (11.5-14.5); White Blood Count 8.9 K/mm3 (4.5-10.0)
[2022-04-01 06:19] LABS: Alanine Aminotransferase 17 U/L (6-50); Albumin Level 3.4 g/dL (3.5-5.1); Alkaline Phosphatase 220 U/L (38-126); Anion Gap 5 mmol/L (8-16); Aspartate Amino Transferase 59 U/L (17-59); Bilirubin,Total 0.5 mg/dL (0.2-1.3); Blood Urea Nitrogen 25 mg/dL (9-20); Calcium 8.3 mg/dL (8.4-10.2); Carbon Dioxide 29 mmol/L (22-30); Chloride 104 mmol/L (98-107); Estimated CRCL calculation 65 ml/min; Estimated Glomerular Filt Rate > 60; Glucose 86 mg/dL (65-110); Potassium 3.6 mmol/L (3.4-5.0); Sodium 138 mmol/L (137-145)
[2022-04-01] MEDS: FERROUS SULFATE 324 MG TABLET PO (08:36)
[2022-04-01] MEDS: CITALOPRAM HYDROBROMIDE 10 MG TABLET PO (08:36)
[2022-04-01] MEDS: CARBIDOPA/LEVODOPA 25/100 MG TABLET 2 TABLET PO ×2 (08:36→17:36)
[2022-04-01] MEDS: FINASTERIDE 5 MG TABLET PO (08:36)
[2022-04-01] MEDS: MIDODRINE HCL 2.5 MG TABLET 5 MG PO ×3 (08:36→17:37)
[2022-04-01] MEDS: GABAPENTIN 300 MG CAPSULE PO ×2 (08:37→17:37)
[2022-04-01] MEDS: DOCUSATE SODIUM 100 MG CAPSULE PO (08:37)
[2022-04-01] MEDS: SODIUM CHLORIDE 0.9% IV 1,000 ML 100 ML IV CONT (08:41)
[2022-04-01 10:00] VITALS: BP 136/65; PULSE 51; RESP 16; TEMP 36.7; O2SAT 99
[2022-04-01] MEDS: ACETAMINOPHEN 325 MG TABLET 650 MG PO (11:31)
--- NOTE | 2022-04-01 11:35 | PM.IMPN ---
Progress Note: A&P Assessment and Plan (1) UTI (urinary tract infection): Code(s): N39.0 - Urinary tract infection, site not specified Status: Acute Assessment and Plan: UA +infection on admission. Started on IV Rocephin 1 gram Q24 hours. Adjust antibiotics per cultures. Urine culture pending but dose show gram negative bacilli >100,00 CFU. Blood cultures with gram positive cocci in 1 bottle, 3 sets without growth- likely a contamination. Repeat blood cultures 04/01/22. Leukocytosis improved from admission. Continue supportive care. Monitor I/O. (2) Acute renal failure: Qualifiers: Acute renal failure type: unspecified Qualified Code(s): N17.9 - Acute kidney failure, unspecified Code(s): N17.9 - Acute kidney failure, unspecified Status: Acute Assessment and Plan: On admission, BUN 57, creatinine 1.9, GFR 34. Creatinine and BUN within normal limits at baseline. Likely secondary to dehydration Trend BMP. Renal function trending down to normal limits. Vitals stable. Saline lock IVF and encourage oral water intake. Avoid nephrotoxic medication. (3) History of Parkinson's disease: Code(s): Z86.69 - Personal history of other diseases of the nervous system and sense organs Status: Chronic Assessment and Plan: chronic, stable. continue carbidopa levodopa (4) Hyperlipidemia: Qualifiers: Hyperlipidemia type: mixed hyperlipidemia Qualified Code(s): E78.2 - Mixed hyperlipidemia Code(s): E78.5 - Hyperlipidemia, unspecified Status: Chronic Assessment and Plan: Chronic, continue lipitor and continue with heart healthy diet (5) Depression with anxiety: Code(s): F41.8 - Other specified anxiety disorders Status: Chronic Assessment and Plan: Chronic, stable. continue with Celexa at home dose. (6) BPH (benign prostatic hyperplasia): Code(s): N40.0 - Benign prostatic hyperplasia without lower urinary tract symptoms Status: Chronic Assessment and Plan: Chronic, continue with Proscar (7) Neuropathy: Code(s): G62.9 - Polyneuropathy, unspecified Status: Chronic Assessment and Plan: Chronic, stable. continue with gabapentin (8) Dementia: Code(s): F03.90 - Unspecified dementia, unspecified severity, without behavioral disturbance, psychotic disturbance, mood disturbance, and anxiety Status: Chronic Assessment and Plan: Chronic, continue with Aricept Plan CODE STATUS: DNR Disposition: Possible dc in am if blood cultures negative. [facility]. Time Spent With Patient Time with patient: 15 - 25 minutes Subjective Date/time seen: 04/01/22 11:35 No new complaints or overnight events. He was tired after working with PT today. He had lower back pain but this improved with PO tylenol. His is at bedside and reports that his appetite is improved. No dysuria, urgency, frequency, hesitancy, hematuria, abdominal pain, N/V/D, chills or diaphoresis. Review of Systems Review of Systems: All systems reviewed & are unremarkable except as noted in HPI and below Exam Narrative: GENERAL: no acute distress, older adult male sitting up in bed. HEENT: Normocephalic. Sclera nonicteric. Pupils equal and round. moist mucous membranes NECK: no JVD. RESPIRATORY: RR regular and unlabored. lung sounds clear to auscultation bilaterally, diminished bibasilar lobes. No wheezing. CARDIO: Normal S1 and S2 regular rate and rhythm. No murmur, gallop or rub. GI: soft, round nontender, bowel sounds present in all quadrants. No suprapubic tenderness. SKIN: no rashes, cap refill less than 2 seconds, fair turgor. EXTREMITIES: no edema, redness or tenderness, generalized weakness. NEURO: AO to self, no focal deficits. CN 2-12 grossly intact. gait not tested. PSYCH: cooperative. Flat affect. Objective Data Meena
[2022-04-01 13:55] VITALS: BP 153/70; PULSE 50; RESP 16; TEMP 36.9; O2SAT 99
[2022-04-01] MEDS: SACCHAROMYCES BOULARDII 250 MG CAPSULE PO (17:37)
[2022-04-01] MEDS: GABAPENTIN 300 MG CAPSULE 600 MG PO (20:18)
[2022-04-01] MEDS: DONEPEZIL HCL 10 MG TABLET PO (20:18)
[2022-04-01] MEDS: ATORVASTATIN 20 MG TABLET PO (20:18)
[2022-04-01 22:00] VITALS: BP 148/76; PULSE 76; RESP 16; TEMP 36.7; O2SAT 97
[2022-04-02 05:56] LABS: Basophils Percent Auto 0.3 % (0.2-1.2); Eosinophils Absolute Auto 0.2 K/mm3 (0-0.3); Hemoglobin 9.8 g/dL (14.0-18.0); Immature Granulocyte Absolute 0.05 K/mm3 (0.00-0.031); Immature Granulocyte Percent A 0.7 % (0-0.5); Lymphocytes Absolute Auto 0.77 K/mm3 (0.9-3.2); Mean Corpuscular HGB Conc 32.7 g/dl (32-36); Mean Corpuscular Hemoglobin 30.8 pg (26-34); Mean Corpuscular Volume 94.3 fl (80-100); Mean Platelet Volume 10.1 fl (7.4-10.4); Monocytes Absolute Auto 0.6 K/mm3 (0.1-0.6); Monocytes Percent Auto 7.9 % (2.6-8.5); Neutrophils Absolute Auto 6.1 K/mm3 (1.3-6.7); Neutrophils Percent Auto 79.1 % (45.5-73.1); Platelet Count Result 240 k/mm3 (150-375); Red Blood Count 3.18 M/mm3 (4.6-6.20); White Blood Count 7.7 K/mm3 (4.5-10.0)
[2022-04-02 06:00] VITALS: BP 170/73; PULSE 58; RESP 16; TEMP 36.4; O2SAT 99
--- NOTE | 2022-04-02 07:31 | P.PNIM_ITS ---
Progress Note: A&P Assessment and Plan (1) UTI (urinary tract infection): Code(s): N39.0 - Urinary tract infection, site not specified Status: Acute Assessment and Plan: UA +infection on admission. * Started on IV Rocephin 1 gram Q24 hours on admission- DC'd 04/02 for MDR Proteus in urine culture. * Urine culture with p. mirabilis resistant to beta-lactams (ampicillin, Unasyn, Cefazolin, ceftriaxone), bactrim, maccrobid, fluoroquinolones. but sensitive to Ertapenem. * Change to Ertapenem 1 gram Q24 hours IV x 5 days. started 04/02/22. * Blood cultures with gram positive cocci in 1 bottle showing staph hominis which is normal skin ailyn, 3 sets without growth suggesting contamination. Repeat blood cultures 04/01/22 preliminarily negative. * Place midline * Leukocytosis resolved from admission. * Continue supportive care. * Monitor I/O. (2) Acute renal failure: Qualifiers: Acute renal failure type: unspecified Qualified Code(s): N17.9 - Acute kidney failure, unspecified Code(s): N17.9 - Acute kidney failure, unspecified Status: Acute Assessment and Plan: On admission, BUN 57, creatinine 1.9, GFR 34. Creatinine and BUN within normal limits at baseline. Likely secondary to dehydration * Trend BMP. * Renal function trending down to normal limits. * Vitals stable. * Saline lock IVF and encourage oral water intake. * Avoid nephrotoxic medication. * Stable. (3) History of Parkinson's disease: Code(s): Z86.69 - Personal history of other diseases of the nervous system and sense organs Status: Chronic Assessment and Plan: chronic, stable. * continue carbidopa levodopa (4) Hyperlipidemia: Qualifiers: Hyperlipidemia type: mixed hyperlipidemia Qualified Code(s): E78.2 - Mixed hyperlipidemia Code(s): E78.5 - Hyperlipidemia, unspecified Status: Chronic Assessment and Plan: Chronic, * continue lipitor and continue with heart healthy diet (5) Depression with anxiety: Code(s): F41.8 - Other specified anxiety disorders Status: Chronic Assessment and Plan: Chronic, stable. * continue with Celexa at home dose. (6) BPH (benign prostatic hyperplasia): Code(s): N40.0 - Benign prostatic hyperplasia without lower urinary tract symptoms Status: Chronic Assessment and Plan: Chronic, * continue with Proscar * PVR x 1 ordered. (7) Neuropathy: Code(s): G62.9 - Polyneuropathy, unspecified Status: Chronic Assessment and Plan: Chronic, stable. * continue with gabapentin (8) Dementia: Code(s): F03.90 - Unspecified dementia, unspecified severity, without behavioral disturbance, psychotic disturbance, mood disturbance, and anxiety Status: Chronic Assessment and Plan: Chronic, * continue with Aricept Plan CODE STATUS: DNR Disposition: Possible dc if blood cultures negative 04/03 and IV antibiotics can be arranged with residential. Time Spent With Patient Time with patient: 15 - 25 minutes (>50% time spent with patient education. ) Subjective Date/time seen: 04/02/22 07:31 He complains of lower back pain. His is at bedside reports he has chronic lower back pain however this seems to be exacerbated by being in bed more since admission. He typically is able to get up to the wheelchair and reposition himself as needed. Has not been out of bed today. He denies dysuria, hematuria, frequency or lower abdom
--- NOTE | 2022-04-02 07:31 | PM.IMPN ---
Progress Note: A&P Assessment and Plan (1) UTI (urinary tract infection): Code(s): N39.0 - Urinary tract infection, site not specified Status: Acute Assessment and Plan: UA +infection on admission. Started on IV Rocephin 1 gram Q24 hours on admission- DC'd 04/02 for MDR Proteus in urine culture. Urine culture with p. mirabilis resistant to beta-lactams (ampicillin, Unasyn, Cefazolin, ceftriaxone), bactrim, maccrobid, fluoroquinolones. but sensitive to Ertapenem. Change to Ertapenem 1 gram Q24 hours IV x 5 days. started 04/02/22. Blood cultures with gram positive cocci in 1 bottle showing staph hominis which is normal skin ailyn, 3 sets without growth suggesting contamination. Repeat blood cultures 04/01/[address] midline Leukocytosis resolved from admission. Continue supportive care. Monitor I/O. (2) Acute renal failure: Qualifiers: Acute renal failure type: unspecified Qualified Code(s): N17.9 - Acute kidney failure, unspecified Code(s): N17.9 - Acute kidney failure, unspecified Status: Acute Assessment and Plan: On admission, BUN 57, creatinine 1.9, GFR 34. Creatinine and BUN within normal limits at baseline. Likely secondary to dehydration Trend BMP. Renal function trending down to normal limits. Vitals stable. Saline lock IVF and encourage oral water intake. Avoid nephrotoxic medication. Stable. (3) History of Parkinson's disease: Code(s): Z86.69 - Personal history of other diseases of the nervous system and sense organs Status: Chronic Assessment and Plan: chronic, stable. continue carbidopa levodopa (4) Hyperlipidemia: Qualifiers: Hyperlipidemia type: mixed hyperlipidemia Qualified Code(s): E78.2 - Mixed hyperlipidemia Code(s): E78.5 - Hyperlipidemia, unspecified Status: Chronic Assessment and Plan: Chronic, continue lipitor and continue with heart healthy diet (5) Depression with anxiety: Code(s): F41.8 - Other specified anxiety disorders Status: Chronic Assessment and Plan: Chronic, stable. continue with Celexa at home dose. (6) BPH (benign prostatic hyperplasia): Code(s): N40.0 - Benign prostatic hyperplasia without lower urinary tract symptoms Status: Chronic Assessment and Plan: Chronic, continue with Proscar PVR x 1 ordered. (7) Neuropathy: Code(s): G62.9 - Polyneuropathy, unspecified Status: Chronic Assessment and Plan: Chronic, stable. continue with gabapentin (8) Dementia: Code(s): F03.90 - Unspecified dementia, unspecified severity, without behavioral disturbance, psychotic disturbance, mood disturbance, and anxiety Status: Chronic Assessment and Plan: Chronic, continue with Aricept Plan CODE STATUS: DNR Disposition: Possible dc if blood cultures negative 04/03 and IV antibiotics can be arranged with jail. Time Spent With Patient Time with patient: 15 - 25 minutes (>50% time spent with patient education. ) Subjective Date/time seen: 04/02/22 07:31 He complains of lower back pain. His is at bedside reports he has chronic lower back pain however this seems to be exacerbated by being in bed more since admission. He typically is able to get up to the wheelchair and reposition himself as needed. Has not been out of bed today. He denies dysuria, hematuria, frequency or lower abdominal pain. He is incontinent at baseline. No fevers, rigors, or diaphoresis. Review of Systems Review of Systems: All systems reviewed & are unremarkable except as noted in HPI and below Exam Narrative: GENERAL: no acute distress, older adult male sitting up in bed. HEENT: Normocephalic. Sclera nonicteric. Pupils equal and round. moist mucous membranes NECK: no JVD. RESPIRATORY: RR regular and unlabored. lung sounds clear to auscultation leslee
[2022-04-02] MEDS: CITALOPRAM HYDROBROMIDE 10 MG TABLET PO (08:33)
[2022-04-02] MEDS: CARBIDOPA/LEVODOPA 25/100 MG TABLET 2 TABLET PO ×2 (08:33→16:37)
[2022-04-02] MEDS: SACCHAROMYCES BOULARDII 250 MG CAPSULE PO ×2 (08:33→16:38)
[2022-04-02] MEDS: FINASTERIDE 5 MG TABLET PO (08:33)
[2022-04-02] MEDS: GABAPENTIN 300 MG CAPSULE PO ×2 (08:33→16:38)
[2022-04-02] MEDS: FERROUS SULFATE 324 MG TABLET PO (08:33)
[2022-04-02] MEDS: ERTAPENEM 1 GM/NS 50 ML 1 GM/50 ML BAG IVPB (08:33)
[2022-04-02] MEDS: ACETAMINOPHEN 325 MG TABLET 650 MG PO ×3 (08:55→20:47)
[2022-04-02 09:34] VITALS: BP 146/62; PULSE 62; RESP 18; TEMP 36.6; O2SAT 97
[2022-04-02] MEDS: MIDODRINE HCL 2.5 MG TABLET 5 MG PO ×3 (09:36→17:45)
[2022-04-02 13:43] VITALS: BP 150/65; PULSE 53; RESP 16; TEMP 36.6; O2SAT 100
[2022-04-02] MEDS: GABAPENTIN 300 MG CAPSULE 600 MG PO (20:47)
[2022-04-02] MEDS: DONEPEZIL HCL 10 MG TABLET PO (20:47)
[2022-04-02] MEDS: ATORVASTATIN 20 MG TABLET PO (20:47)
[2022-04-02 22:00] VITALS: BP 140/71; PULSE 57; RESP 18; TEMP 36.1; O2SAT 100
[2022-04-03 05:23] VITALS: BP 153/73; PULSE 60; RESP 16; TEMP 36.1; O2SAT 100
[2022-04-03 05:46] LABS: Basophils Percent Auto 0.5 % (0.2-1.2); Eosinophils Absolute Auto 0.3 K/mm3 (0-0.3); Eosinophils Percent Auto 4.2 % (0-4.4); Hematocrit 30.2 % (42.0-52.0); Hemoglobin 9.8 g/dL (14.0-18.0); Immature Granulocyte Absolute 0.08 K/mm3 (0.00-0.031); Immature Granulocyte Percent A 1.1 % (0-0.5); Lymphocytes Absolute Auto 1.27 K/mm3 (0.9-3.2); Lymphocytes Percent Auto 17.3 % (18.3-44.2); Mean Corpuscular HGB Conc 32.5 g/dl (32-36); Mean Corpuscular Volume 95.6 fl (80-100); Mean Platelet Volume 10.1 fl (7.4-10.4); Monocytes Absolute Auto 0.7 K/mm3 (0.1-0.6); Monocytes Percent Auto 10.1 % (2.6-8.5); Neutrophils Absolute Auto 4.9 K/mm3 (1.3-6.7); Neutrophils Percent Auto 66.8 % (45.5-73.1); Platelet Count Result 239 k/mm3 (150-375); Red Blood Count 3.16 M/mm3 (4.6-6.20); White Blood Count 7.3 K/mm3 (4.5-10.0)
[2022-04-03 05:58] LABS: Anion Gap 7 mmol/L (8-16); Blood Urea Nitrogen 19 mg/dL (9-20); Calcium 8.5 mg/dL (8.4-10.2); Carbon Dioxide 27 mmol/L (22-30); Chloride 105 mmol/L (98-107); Estimated CRCL calculation 72 ml/min; Estimated Glomerular Filt Rate > 60; Glucose 87 mg/dL (65-110); Potassium 3.4 mmol/L (3.4-5.0); Sodium 139 mmol/L (137-145)
[2022-04-03] MEDS: ACETAMINOPHEN 325 MG TABLET 650 MG PO (09:23)
[2022-04-03] MEDS: FINASTERIDE 5 MG TABLET PO (09:24)
[2022-04-03] MEDS: FERROUS SULFATE 324 MG TABLET PO (09:24)
[2022-04-03] MEDS: GABAPENTIN 300 MG CAPSULE PO ×2 (09:24→16:59)
[2022-04-03] MEDS: CARBIDOPA/LEVODOPA 25/100 MG TABLET 2 TABLET PO ×2 (09:25→16:58)
[2022-04-03] MEDS: MIDODRINE HCL 2.5 MG TABLET 5 MG PO ×3 (09:25→16:59)
[2022-04-03] MEDS: CITALOPRAM HYDROBROMIDE 10 MG TABLET PO (09:25)
[2022-04-03] MEDS: SACCHAROMYCES BOULARDII 250 MG CAPSULE PO ×2 (09:25→17:00)
[2022-04-03] MEDS: ERTAPENEM 1 GM/NS 50 ML 1 GM/50 ML BAG IVPB (09:26)
[2022-04-03 11:53] VITALS: BP 138/64
[2022-04-03] MEDS: LIDOCAINE HCL 1% LOCAL INJ 2 ML AMPUL 5 ML INFILTRATE (13:15)
--- NOTE | 2022-04-03 13:36 | PM.DS ---
DS: Admitting Diagnosis Discharge Date 04/03/22 1350 Admitting Diagnosis UTI (urinary tract infection) Acute renal failure History of Parkinson's disease Hyperlipidemia Depression with anxiety BPH (benign prostatic hyperplasia) Neuropathy Dementia DS: Discharge Diagnosis Discharge Diagnosis (1) UTI (urinary tract infection): Code(s): N39.0 - Urinary tract infection, site not specified Status: Acute Assessment and Plan: UA +infection on admission. Started on IV Rocephin 1 gram Q24 hours on admission- DC'd 04/02 for MDR Proteus in urine culture. Urine culture with p. mirabilis resistant to beta-lactams (ampicillin, Unasyn, Cefazolin, ceftriaxone), bactrim, macrobid, fluoroquinolones. but sensitive to Ertapenem. Changed to Ertapenem 1 gram Q24 hours IV x 5 days on 04/02/22. Blood cultures with gram positive cocci in 1 bottle showing staph hominis which is normal skin ailyn, 3 sets without growth suggesting contamination. Repeat blood cultures 04/01/22 negative to date at discharge. midline inserted on the day of discharge. Leukocytosis resolved by discharge. (2) Acute renal failure: Qualifiers: Acute renal failure type: unspecified Qualified Code(s): N17.9 - Acute kidney failure, unspecified Code(s): N17.9 - Acute kidney failure, unspecified Status: Acute Assessment and Plan: On admission, BUN 57, creatinine 1.9, GFR 34. Creatinine and BUN within normal limits at baseline. Likely secondary to dehydration Trended BMP. Renal function trended down to normal limits. Treated with IV fluids. Renal ultrasound was negative for acute disease, incidental nonobstructing renal stone was noted. (3) History of Parkinson's disease: Code(s): Z86.69 - Personal history of other diseases of the nervous system and sense organs Status: Chronic Assessment and Plan: chronic, stable. continued carbidopa- levodopa (4) Hyperlipidemia: Qualifiers: Hyperlipidemia type: mixed hyperlipidemia Qualified Code(s): E78.2 - Mixed hyperlipidemia Code(s): E78.5 - Hyperlipidemia, unspecified Status: Chronic Assessment and Plan: Chronic, continue lipitor and continue with heart healthy diet (5) Depression with anxiety: Code(s): F41.8 - Other specified anxiety disorders Status: Chronic Assessment and Plan: Chronic, stable. continue with Celexa at home dose. (6) BPH (benign prostatic hyperplasia): Qualifiers: Lower urinary tract symptom detail: urinary frequency Lower urinary tract symptom presence: symptoms present Qualified Code(s): N40.1 - Benign prostatic hyperplasia with lower urinary tract symptoms; R35.0 - Frequency of micturition Code(s): N40.0 - Benign prostatic hyperplasia without lower urinary tract symptoms Status: Chronic Assessment and Plan: Chronic, continue with Proscar (7) Neuropathy: Code(s): G62.9 - Polyneuropathy, unspecified Status: Chronic Assessment and Plan: Chronic, stable. continue with gabapentin (8) Dementia: Code(s): F03.90 - Unspecified dementia, unspecified severity, without behavioral disturbance, psychotic disturbance, mood disturbance, and anxiety Status: Chronic Assessment and Plan: Chronic, continue with Aricept DS: Summary Hospital Course Reason for hospitalization: Elevated white blood cell count Hospital Course: Dickson Pretty is an 82-year-old male patient with hypertension, DVT, BPH and coronary artery disease.? The patient presented from [facility] with complaints of an elevated white count.? The family also stated that he had not been eating or drinking very well. He had been admitted in January for the same symptoms.? No known fever or chills.? WBC was 20.5 on admission.? His creatinine was 1.9.? The patient was found to be positive for UTI and negative for influenza A/B, RSV and COV
[2022-04-03 14:00] VITALS: BP 154/72; PULSE 81; RESP 16; TEMP 36.7; O2SAT 97
[2022-04-03 14:37] LABS: EDCOVIDSCREEN Negative (Negative)
== END 2022-04-03 17:15 | DRG 690 ==
LOC: ANHED 18:28 → ANH3MED 19:42
PROVIDERS: Internal Medicine Critical Care Medicine; Nurse Practitioner Family; Admitting Provider Internal Medicine; Emergency Provider Family Medicine; PCP Internal Medicine; Visit Provider Internal Medicine
DX: N39.0 Urinary tract infection, site not specified (principal); Z16.24 Resistance to multiple antibiotics; N17.9 Acute kidney failure, unspecified; B96.4 Proteus (mirabilis) (morganii) as the cause of diseases classified elsewhere; G20 Parkinson's disease; E78.5 Hyperlipidemia, unspecified; F41.8 Other specified anxiety disorders; N40.0 Benign prostatic hyperplasia without lower urinary tract symptoms; G62.9 Polyneuropathy, unspecified; F02.80 Dementia in other diseases classified elsewhere, unspecified severity, without behavioral disturbance, psychotic disturbance, mood disturbance, and anxiety; Z66 Do not resuscitate; Z20.822 Contact with and (suspected) exposure to COVID-19; I25.10 Atherosclerotic heart disease of native coronary artery without angina pectoris; Z86.718 Personal history of other venous thrombosis and embolism; Z82.49 Family history of ischemic heart disease and other diseases of the circulatory system; Z80.42 Family history of malignant neoplasm of prostate; Z87.891 Personal history of nicotine dependence; Z79.899 Other long term (current) drug therapy
CPT/HCPCS: 36415; 36569; 71046; 76775; 80048; 80053; 81001; 85025; 87040; 87077; 87086; 87147; 87181; 87186; 87426; 87637; 93005; 96361; 96365; 96366; 96367; 97161; 97166; 99285; A9270; C1751; C9803; G0378; J0696; J1335; J7030

== ENCOUNTER 2023-11-10 12:17 | Outpatient (CLI) | payer OTHER, SELFPAY ==
--- NOTE | ~2023-11-10 | XR_ITS ---
MODIFIED ESOPHAGRAM HISTORY: Gastroesophageal reflux without esophagitis TECHNIQUE: Modified barium esophagram was performed on 11/10/2023. I administered fluoroscopy and perf ormed the exam with speech pathologist. Patient was seated for lateral fluoroscopic imaging for shira stion of thin liquids, pudding, solids and quantified amounts, followed by thin liquids in uncontroll ed amounts. This was recorded on tape. A single fluoroscopic spot image was also recorded. The DAP fo r this procedure was 2.311 Gycm2. The amount of fluoroscopy time used during this procedure was 3.4 m inutes. FINDINGS: Oral stage: Adequate function both delayed initiation of each swallow. Pharyngeal stage: Reduced laryngeal elevation, laryngeal adduction, tongue base retraction and pharyn geal squeeze. There is residue at the vallecula, piriform sinus and along the pharyngeal rudolph. There is both laryngeal penetration and aspiration. Cervical/esophageal stage: Adequate function. IMPRESSION: Pharyngeal dysphagia with laryngeal penetration and aspiration. Please correlate with sp eech pathologist findings and specific feeding recommendations. Reviewed, dictated and finalized at location A. IMPRESSION: Pharyngeal dysphagia with laryngeal penetration and aspiration. Pl ease correlate with speech pathologist findings and specific feeding recommenda tions.
--- NOTE | 2023-11-10 16:04 | REHSTMBS ---
Assessment and note entered by Megha Gustafson, DIRECTOR OF [facility] Modified Barium Swallow Evaluation Feeding Type Recommended Oral Food Consistency Minced and Moist, Level 5 Liquid Consistency Mildly Thick (2) Treatment Recommendations Effortful Swallow,Laryngeal Elevation Exerc, Thermal-Tactile Stim,Tongue Base Exercise ST Clinical Summary This patient was seen for a Modified Barium Swallow study at the request of his physician. Patient reports he has a diagnosis of Parkinson's disease and that it is hard to swallow. He reports that he gets choked, but not constantly. Patient is a current resident of [facility]. Patient was accompanied by a staff member who reported that staff was concerned that patient was aspirating when eating and drinking. Therapist spoke with DK Padron, at [facility] who reported patient takes up to 45 minutes to consume his meals and staff is happy to oblige. She stated that he continues to consume his meals until they are completed as he enjoys eating still. She did report that staff is concerned that patient has been or will aspirate during meals. Patient was viewed in the lateral position to the level of C5/C6. He was presented only with approximately 1/2 teaspoon of thin liquid contrast medium and 1/2 teaspoon of pudding mixed with semi-solid contrast medium. On both presentations patient presented with delayed swallows by 8-10 seconds which allowed material to fall over base of tongue into the vallecula and then roll into the pyriform sinuses at the base of the throat and remain there for between each swallow, placing the patient at risk for aspiration on both consistencies before, during, and after swallowing. Testing was terminated as it was decided that these results are indicative of how patient consumes other consistencies. Results indicate this patient is likely at risk for aspiration on all consistencies secondary to significant delays on every swallow while allowing airway to remain open for penetration of material into the airway. When swallows are triggered, reduced base of tongue retraction is noted that presses only a portion of residual into the esophagus causing patient to use multiple swallows
== END 2023-11-10 12:18 | disposition home or self-care (01) ==
PROVIDERS: PCP Internal Medicine; Visit Provider Nurse Practitioner Family
DX: K21.9 Gastro-esophageal reflux disease without esophagitis (principal)
CPT/HCPCS: 92611